=== PATIENT | male | born 1950 | race Caucasian/White ===

== ENCOUNTER 2020-01-24 20:22 | Emergency (ER) | payer OTHER, MEDICAID ==
[~2020-01-24] VITALS: Ht 175.3 cm; Wt 108.9 kg
[2020-01-24 20:32] VITALS: BP 158/88
[2020-01-24] MEDS ORDERED: MORPHINE SULFATE 4 MG/ML SYR IM ONE (21:25)
[2020-01-24 21:36] VITALS: BP 158/88
== END 2020-01-24 21:36 | disposition home or self-care (01) ==
LOC: MED 20:22
DX: G89.29 Other chronic pain (principal); M25.569 Pain in unspecified knee
CPT/HCPCS: 96372; 99283; J2270

== ENCOUNTER 2021-08-25 12:58 | Emergency (ER) | payer OTHER, MEDICAID ==
[~2021-08-25] VITALS: Ht 175.3 cm; Wt 111.1 kg
[2021-08-25 13:10] VITALS: BP 150/105
--- NOTE | 2021-08-25 13:17 | NUR ---
PT AMBULATED TO ER 12 WITH WALKER ASSISTANCE.
--- NOTE | 2021-08-25 13:50 | NUR ---
71/M BIB [facility] [facility] C/O KNEE AND BACK PAIN, ALSO C/O OF SNEEZING. PATIENT PAIN 9/10 AT THIS TIME. PATIENT STATED THAT HE HAS SUFFERED FROM CHRONIC PAIN SINCE 1990, BUT HAS GOTTEN WORSE IN THE PAST 3 WEEKS. PATIENT HAS TAKEN PERCOCET WITH MILD TO NO RELIEF. PMHX: [facility] DENIES NKA
[2021-08-25] MEDS ORDERED: fentaNYL citrate 0.05 MG/ML VIAL IM ONE ×3 (14:15→16:50)
--- NOTE | 2021-08-25 14:26 | NUR ---
PT TAKEN TO XR VIA W/C.
--- NOTE | 2021-08-25 14:58 | NUR ---
DANIELLE ROSENTHAL AT BEDSIDE FOR FURTHER EVAL
--- NOTE | 2021-08-25 14:58 | NUR ---
Janet harvey in [facility] - 08/25/21 at 1540 by [facility] at bedside
--- NOTE | 2021-08-25 15:04 | NUR ---
Janet harvey in [facility] - 08/25/21 at 1541 by [facility] AT BEDSIDE
--- NOTE | 2021-08-25 15:20 | NUR ---
DANIELLE ROSENTHAL AT BEDSIDE FOR PAIN EVAL
--- NOTE | 2021-08-25 15:34 | NUR ---
MARCELINO COLLECTED, WALKED AND HANDED TO LAB
--- NOTE | 2021-08-25 16:30 | NUR ---
DANIELLE ROSENTHAL AT BEDSIDE
--- NOTE | 2021-08-25 16:50 | NUR ---
TRIED TO CONTACT PATIENTS OWN INSURANCE TRANSPORTATION SERVICES, UNABLE TO CONTACT
[2021-08-25] MEDS ORDERED: BENZ100C6 PO (16:54)
[2021-08-25] MEDS ORDERED: LORA10SG1 PO (16:54)
[2021-08-25 17:20] VITALS: BP 132/78
--- NOTE | 2021-08-25 17:21 | NUR ---
PATIENT STABLE, BEING MONITORED WHILE WAITING IN THE LOBBY FOR P/U
--- NOTE | 2021-08-25 17:24 | NUR ---
Patient discharged with v/s stable. Written and verbal after care instructions given for URI, chronic back pain, and hematuria and explained. Patient alert, oriented and verbalized understanding of instructions. Ambulatory with steady gait. All questions addressed prior to discharge. ID band removed. Patient advised to follow up with PMD. Rx of Benzonatate and claritin given.
--- NOTE | 2021-08-25 17:44 | NUR ---
The patient's care was reviewed and supervised by Luisa Durbin RN.
== END 2021-08-25 17:24 | disposition home or self-care (01) ==
LOC: MED 12:58
DX: M54.50 Low back pain, unspecified (principal); Z20.822 Contact with and (suspected) exposure to COVID-19; G89.29 Other chronic pain; R31.9 Hematuria, unspecified; J06.9 Acute upper respiratory infection, unspecified; Z79.899 Other long term (current) drug therapy
CPT/HCPCS: 72100; 81002; 87426; 96372; 99284; J3010

== ENCOUNTER 2021-12-04 11:46 | Emergency (ER) | payer OTHER, MEDICAID ==
[~2021-12-04] VITALS: Ht 175.3 cm; Wt 111.1 kg
[~2021-12-04 11:46] MED LIST: BENZ100C6 PO; LORA10SG1 PO
[2021-12-04 12:01] VITALS: BP 137/94
[2021-12-04] MEDS ORDERED: KETOROLAC 60 MG/2 ML VIAL IM ONE (13:05)
[2021-12-04] MEDS ORDERED: IBUP-2213 PO (13:08)
[2021-12-04 13:37] VITALS: BP 113/68
== END 2021-12-04 13:37 | disposition home or self-care (01) ==
LOC: MED 11:46
DX: S09.90XA Unspecified injury of head, initial encounter (principal); Z20.822 Contact with and (suspected) exposure to COVID-19; I10 Essential (primary) hypertension; Z98.890 Other specified postprocedural states; Z79.899 Other long term (current) drug therapy; W18.39XA Other fall on same level, initial encounter; Y92.89 Other specified places as the place of occurrence of the external cause; Y93.89 Activity, other specified; Y99.8 Other external cause status
CPT/HCPCS: 70450; 87426; 96372; 99284; J1885

== ENCOUNTER 2022-02-24 13:11 | Emergency (ER) | payer OTHER, MEDICAID ==
[~2022-02-24] VITALS: Ht 175.3 cm; Wt 104.3 kg
[~2022-02-24 13:11] MED LIST changes: +IBUP-2213 PO
[2022-02-24 13:21] VITALS: BP 140/102
[2022-02-24] MEDS ORDERED: MORPHINE SULFATE 4 MG/ML SYR IM ONE (14:55)
--- NOTE | 2022-02-24 15:10 | NUR ---
ambulated to bed 9 with walker
[2022-02-24] MEDS ORDERED: ACET-8386 PO (15:11)
--- NOTE | 2022-02-24 15:28 | NUR ---
71 y/o male, pt presents to ed with increased back pain since last night after twisting his back. pt states pain is constant /10, describes it as sharp with radiation from left side to right side. pt denies dysuria, hematuria, fever, chills, nausea or vomiting. pmh: dm2, htn, chronic back pain nka
[2022-02-24 15:40] VITALS: BP 140/102
--- NOTE | 2022-02-24 15:40 | NUR ---
Patient discharged with v/s stable. Written and verbal after care instructions given and explained. Patient alert, oriented and verbalized understanding of instructions. Ambulatory to car. All questions addressed prior to discharge. ID band removed. Patient advised to follow up with PMD. Rx of hydrocodone (sent) given. Patient educated on indication of medication including possible reaction and side effects. Opportunity to ask questions provided and answered.
== END 2022-02-24 15:40 | disposition home or self-care (01) ==
LOC: MED 13:11
DX: M54.50 Low back pain, unspecified (principal); E11.9 Type 2 diabetes mellitus without complications; I10 Essential (primary) hypertension; Z79.899 Other long term (current) drug therapy; Z98.890 Other specified postprocedural states
CPT/HCPCS: 72100; 96372; 99283; J2270

== ENCOUNTER 2022-03-29 13:13 | Emergency (ER) | payer OTHER, MEDICAID ==
[~2022-03-29] VITALS: Ht 175.3 cm; Wt 104.3 kg
[~2022-03-29 13:13] MED LIST changes: +ACET-8386 PO
[2022-03-29 13:19] VITALS: BP 136/55
[2022-03-29] MEDS ORDERED: HYDROcodone/APAP 7.5/325 MG 1 TAB PO ONE (15:40)
[2022-03-29] MEDS ORDERED: LID5T TP (16:12)
[2022-03-29] MEDS ORDERED: IBUP-2213 PO (16:12)
[2022-03-29] MEDS ORDERED: ACET-8386 PO (16:12)
[2022-03-29 16:19] VITALS: BP 124/80
--- NOTE | 2022-03-29 16:19 | NUR ---
Patient discharged with v/s stable. Written and verbal after care instructions given and explained. Patient alert, oriented and verbalized understanding of instructions. Ambulatory with steady gait. All questions addressed prior to discharge. ID band removed. Patient advised to follow up with PMD. Rx of NORCO, LIDODERM PATCH, MOTRIN given. Patient educated on indication of medication including possible reaction and side effects. Opportunity to ask questions provided and answered.
== END 2022-03-29 16:19 | disposition home or self-care (01) ==
LOC: MED 13:13
DX: S63.91XA Sprain of unspecified part of right wrist and hand, initial encounter (principal); S13.4XXA Sprain of ligaments of cervical spine, initial encounter; S20.211A Contusion of right front wall of thorax, initial encounter; I10 Essential (primary) hypertension; E11.9 Type 2 diabetes mellitus without complications; Z79.4 Long term (current) use of insulin; Z79.899 Other long term (current) drug therapy; W18.30XA Fall on same level, unspecified, initial encounter; Y93.89 Activity, other specified; Y92.89 Other specified places as the place of occurrence of the external cause; Y99.8 Other external cause status
CPT/HCPCS: 71101; 72040; 72100; 73060; 99283; 99284

== ENCOUNTER 2022-04-02 18:03 | Emergency (ER) | payer OTHER, MEDICAID ==
[~2022-04-02] VITALS: Ht 175.3 cm; Wt 106.6 kg
[~2022-04-02 18:03] MED LIST changes: +LID5T TP
[2022-04-02 18:08] VITALS: BP 130/93
[2022-04-02] MEDS ORDERED: ACET-8386 PO ×2 (18:52→19:04)
[2022-04-02 19:12] VITALS: BP 130/78
== END 2022-04-02 19:12 | disposition home or self-care (01) ==
LOC: MED 18:03
DX: G89.29 Other chronic pain (principal); E11.9 Type 2 diabetes mellitus without complications; I10 Essential (primary) hypertension; Z79.899 Other long term (current) drug therapy; Z76.0 Encounter for issue of repeat prescription
CPT/HCPCS: 99281